=== PATIENT | female | born 1935 ===

== ENCOUNTER 2021-12-18 12:54 | Inpatient (IN) | payer MEDICARE ==
[~2021-12-18] VITALS: Ht 160 cm; Wt 101.7 kg
[2021-12-18] MEDS ORDERED: OXYBUTYNIN5 MG PO (23:11)
[2021-12-18] MEDS ORDERED: GERI-TUSSIN DM473 M1 PO (23:12)
[2021-12-18] MEDS ORDERED: MILK OF MA400 MG/5 M PO (23:13)
[2021-12-18] MEDS ORDERED: TYLENOL325 M1 PO (23:15)
[2021-12-18] MEDS ORDERED: HEALTHYLAX17 GM PO (23:16)
[2021-12-18] MEDS ORDERED: PROBIOTIC1 EACH PO (23:17)
[2021-12-18] MEDS ORDERED: PROAIR RESPICL90 MCG INH (23:18)
[2021-12-18] MEDS ORDERED: LASIX40 MG PO (23:18)
[2021-12-18] MEDS ORDERED: TENORMIN25 MG PO (23:19)
[2021-12-18] MEDS ORDERED: KLONOPIN0.5 MG PO (23:19)
[2021-12-18] MEDS ORDERED: OMNICEF300 MG PO (23:20)
[2021-12-18] MEDS ORDERED: LIPITOR20 MG PO (23:20)
[2021-12-19 01:15] VITALS: BP 138/76
[2021-12-19] MEDS ORDERED: K-TAB20 MEQ PO (01:48)
[2021-12-19] MEDS ORDERED: CIPRO500 MG PO (02:11)
[2021-12-19 06:41] LABS: BUN 15 mg/dl (7-24); CHLORIDE 108 mmol/L (98-107); CHOLESTEROL 136 mg/dL (<200); CREATININE 0.86 mg/dL (0.55-1.02); POTASSIUM 3.9 mmol/L (3.5-5.1); SGOT/AST 17 IU/L (3-35); SGPT/ALT 16 U/L (12-78); SODIUM 144 mmol/L (136-145); TRIGLYCERIDES 129 mg/dl (<150)
[2021-12-19 06:50] LABS: BASO # 0.1 10*3/uL (0.0-0.1); BASO % 0.9 % (0.0-1.0); EOS # 0.4 10*3/uL (0.0-0.4); EOS % 6.5 % (1.0-4.0); HEMATOCRIT 39.5 % (37.0-47.0); LYMPH % 33.9 % (27.0-41.0); MEAN CELL VOLUME 92.1 fl (81.0-99.0); MEAN CORPUSCULAR HGB 29.4 pg (27.0-31.0); MEAN CORPUSCULAR HGB CONC 31.9 g/dl (33.0-37.0); MONO # 0.7 10*3/uL (0.1-1.0); MONO % 11.6 % (3.0-9.0); NEUT # 2.7 10*3/uL (2.3-7.9); NEUT % 46.8 % (47.0-73.0); PLATELET COUNT AUTOMATED 169 10*3/uL (130-400); RED BLOOD COUNT 4.29 10*6/uL (4.10-5.10); RED CELL DISTRI WIDTH 12.4 % (0-14.5); WHITE BLOOD COUNT 5.8 10*3/uL (4.8-10.8)
[2021-12-19 06:51] LABS: ALKALINE PHOSPHATASE 59 U/L (45-117); LDL CHOLESTEROL 57 mg/dL (9-159); TOTAL PROTEIN 7.2 gm/dL (6.4-8.2)
[2021-12-19 07:33] VITALS: BP 140/64
[2021-12-19 08:51] LABS: VITAMIN D, 25-HYDROXY 38.3 ng/mL (30-100)
[2021-12-19 20:00] VITALS: BP 136/72
[2021-12-20 07:53] VITALS: BP 128/82
[2021-12-20 18:43] LABS: BILIRUBIN Negative (Negative); BLOOD Negative (Negative); COLOR Yellow (Yellow); GLUCOSE Negative (Negative); KETONE Negative (Negative); LEUKO ESTERASE 3+ (Negative); NITRITE Positive (Negative); SPECIFIC GRAVITY 1.015 (1.001-1.030)
[2021-12-20 18:45] LABS: CLARITY Cloudy (Clear)
[2021-12-20 18:55] LABS: BACTERIA 4+; WBC TNTC wbc/hpf (0-5); YEAST 4+
[2021-12-20 19:52] VITALS: BP 139/84
[2021-12-21 06:58] VITALS: BP 141/56
[2021-12-21 20:00] VITALS: BP 138/95
[2021-12-22 08:12] VITALS: BP 133/59
[2021-12-22 20:21] VITALS: BP 145/65
[2021-12-23 07:09] VITALS: BP 145/76
[2021-12-23 19:51] VITALS: BP 140/90
[2021-12-24 07:45] VITALS: BP 144/84
[2021-12-24 19:04] VITALS: BP 124/55
[2021-12-25 18:02] LABS: BASO # 0.1 10*3/uL (0.0-0.1); BASO % 0.8 % (0.0-1.0); EOS # 0.2 10*3/uL (0.0-0.4); EOS % 3.1 % (1.0-4.0); HEMATOCRIT 44.5 % (37.0-47.0); LYMPH # 1.6 10*3/uL (1.3-4.4); MEAN CELL VOLUME 89.9 fl (81.0-99.0); MEAN CORPUSCULAR HGB 29.3 pg (27.0-31.0); MEAN CORPUSCULAR HGB CONC 32.6 g/dl (33.0-37.0); MEAN PLATELET VOLUME 10.3 fl (9.6-12.3); MONO # 0.6 10*3/uL (0.1-1.0); MONO % 8.6 % (3.0-9.0); NEUT # 4.9 10*3/uL (2.3-7.9); NEUT % 65.4 % (47.0-73.0); PLATELET COUNT AUTOMATED 180 10*3/uL (130-400); RED BLOOD COUNT 4.95 10*6/uL (4.10-5.10); RED CELL DISTRI WIDTH 11.8 % (0-14.5); WHITE BLOOD COUNT 7.5 10*3/uL (4.8-10.8)
[2021-12-25 18:18] LABS: ALKALINE PHOSPHATASE 70 U/L (45-117); BUN 17 mg/dl (7-24); CHLORIDE 108 mmol/L (98-107); CREATININE 0.78 mg/dL (0.55-1.02); POTASSIUM 3.6 mmol/L (3.5-5.1); SGOT/AST 17 IU/L (3-35); SGPT/ALT 18 U/L (12-78); SODIUM 141 mmol/L (136-145); TOTAL PROTEIN 8.3 gm/dL (6.4-8.2)
[2021-12-26] MEDS ORDERED: VENTOLIN 02.5 MG/3 M INH (11:30)
[2021-12-26] MEDS ORDERED: RISPERDAL1 M1 OGT (11:33)
[2021-12-26] MEDS ORDERED: DULCOLAX5 M1 PO (11:35)
[2021-12-26] MEDS ORDERED: EXELON1 EAC2 T (11:42)
[2021-12-26] MEDS ORDERED: REMERON SOLTAB15 MG PO ×2 (11:43→11:44)
[2021-12-26] MEDS ORDERED: NAMENDA10 MG PO (11:43)
[2021-12-26] MEDS ORDERED: NYSTATIN1 EAC3 T (14:58)
[2022-01-03] MEDS ORDERED: DIVALPROEX SOD125 M1 PO (09:15)
[2022-01-03] MEDS ORDERED: MIRTAZAPINE15 M1 PO (09:15)
[2022-01-03] MEDS ORDERED: RIVASTIGMINE1 EAC2 T (09:15)
[2022-01-03] MEDS ORDERED: MEMANTINE HCL10 MG PO (09:15)
[2022-01-03] MEDS ORDERED: RISPERIDONE M-0.5 MG OGT ×2 (09:15)
== END 2021-12-25 18:03 | disposition short-term general hospital (02) | DRG 883 ==
LOC: 3N 12:54
PROVIDERS: Internal Medicine; Registered Nurse; ADMIT Psychiatry & Neurology Psychiatry; ATTEND Psychiatry & Neurology Psychiatry
DX: F63.81 Intermittent explosive disorder (principal); E43 Unspecified severe protein-calorie malnutrition; N30.01 Acute cystitis with hematuria; G30.9 Alzheimer's disease, unspecified; F02.80 Dementia in other diseases classified elsewhere, unspecified severity, without behavioral disturbance, psychotic disturbance, mood disturbance, and anxiety; I10 Essential (primary) hypertension; E78.2 Mixed hyperlipidemia; F41.1 Generalized anxiety disorder; F22 Delusional disorders; B96.20 Unspecified Escherichia coli [E. coli] as the cause of diseases classified elsewhere; Z68.39 Body mass index [BMI] 39.0-39.9, adult; Z88.1 Allergy status to other antibiotic agents; Z88.0 Allergy status to penicillin